=== PATIENT | male | born 1950 | race Asian ===

== ENCOUNTER 2018-09-30 11:28 | Inpatient (IN) | payer MEDICARE, MEDICAID ==
--- NOTE | 2018-09-30 11:59 | ED Physician Chart ---
ED Chief Complaint/HPI - Patient Information Date Seen:: 09/30/18 Time Seen:: 11:54 Chief Complaint:: possible new stroke History of Present Illness:: this is a 68 yo male stroke patient from home with finding consistent with a new stroke. the patient was sent here by dr Higginbotham for evaluation and treatment. the patient's. the patient is having a problem with his lower back also and his doctors thinks that he needs an mri scan for his head and back. Historian:: Patient, Family Member Review:: Nurse's Note Reviewed ED Review of Systems - Review of Systems General/Constitutional: No fever, No chills, No weight loss, Weakness, No diaphoresis, No edema, No loss of appetite Skin: No skin lesions, No rash, No bruising Head: No headache, No light-headedness Eyes: No loss of vision, No pain, No diplopia ENT: No earache, No nasal drainage, No sore throat, No tinnitus Neck: No neck pain, No swelling, No thyromegaly, No stiffness, No mass noted Cardio Vascular: No chest pain, No palpitations, No PND, No orthopnea, No edema Pulmonary: No SOB, No cough, No sputum, No wheezing GI: No nausea, No vomiting, No diarrhea, No pain, No melena, No hematochezia, No constipation, No hematemesis G/U: No dysuria, No frequency, No hematuria Musculoskeletal: No bone or joint pain, Back pain, No muscle pain Endocrine: No polyuria, No polydipsia Psychiatric: No prior psych history, Depression, No anxiety, No suicidal ideation Hematopoietic: No bruising, No lymphadenopathy Allergic/Immuno: No urticaria, No angioedema Neurological: No syncope, Focal symptoms, Weakness, No paresthesia, No headache , No seizure, No dizziness, No confusion, No vertigo ED Past Medical History - Past Medical History Obtainable: Yes Past Medical History: HTN, DM, CVA/TIA, Dyslipidemia Family History: Cancer (father had cancer, mother had a stroke) Social History: Non Smoker, No Alcohol, No Drug Use, Surgical History: other (left lung surgery, neck cyst removal) Psychiatricy History: None Medication: Reviewed ED Physical Exam - Physical Examination General/Constitutional: Awake, Well-developed, well-nourished, Alert, No distress, GCS 15, Non-toxic appearing, Ambulatory Head: Atraumatic Eyes: Lids, conjuctiva normal, PERRL, EOMI Skin: Nl inspection, No rash, No skin lesions, No ecchymosis, Well hydrated, No lymphadenopathy ENMT: External ears, nose nl, Nasal exam nl, Lips, teeth, gums nl Neck: Nontender, Full ROM w/o pain, No JVD, No nuchal rigidity, No bruit, No mass, No stridor Respiratory: Nl effort/Exclusion, Clear to Auscultation, No Wheeze/Rhonchi/Rales Cardio Vascular: RRR, No murmur, gallop, rubs, NL S1 S2 GI: No tenderness/rebounding/guarding, No organomegaly, No hernia, Normal BS's, Nondistended, No mass/bruits, No McBurney tenderness : No CVA tenderness Extremities: No tenderness or effusion, Full ROM, normal strength in all extremities, No edema, Normal digits & nails Neuro/Psych: Alert/oriented, DTR's symmetric, Normal sensory exam, Normal motor strength, Judgement/insight normal, Mood normal, Normal gait, No focal deficits (left sided weakness of the upper and lower extremity) Misc: Normal back, No paraspinal tenderness ED Labs/Radiology/EKG Results - Radiology Results Results: chest x-ray = nad - EKG Interpretations EKG Time:: 12:14 Rate & Rhythm: rate= 82, sinus [place]: right axis ED Assessment - Assessment General Assessment: weakness left side back pain ED Septic Shock - . Is Septic Shock (SBP<90, OR Lactate>4 mmol\L) present?: No ED Reassessment (Disposition) - Reassessment Reassessment Condition:: Unchanged - Diagnosis Diagnosis:: recurrent back pain recurrent stroke - Patient Disposition Discharge/Transfer:: Acute Care w/in this hosp Admitted to:: Med/Surg Admitting Psych Physician:: Angelita Higginbotham Condition at Disposition:: Improved
[2018-09-30 12:01] LABS: EOSINOPHILE ABSOLUTE 0.2 Th/cmm (0.1-0.4); HEMATOCRIT 29.7 % (41.0-60); LYMPHOCYTE ABSOLUTE 1.8 Th/cmm (1.5-3.0); MEAN CELL VOLUME 90.5 fl (80-99); MEAN CORPUSCULAR HEMOGLOBIN 30.5 pg (27.0-31.0); MEAN CORPUSCULAR HGB CONC 33.7 pg (28.0-36.0); MEAN PLATELET VOLUME 7.1 fl; MONOCYTE ABSOLUTE 0.2 Th/cmm (0.3-1.0); NEUTROPHILE ABSOLUTE 18.2 Th/cmm (1.8-8.0); PLATELET COUNT 380 Th/cmm (150-400); RED BLOOD COUNT 3.28 Mil/cmm (3.80-5.80); RED CELL DISTRIBUTION WIDTH 12.8 % (11.5-20.0)
[2018-09-30 12:23] LABS: INR 2.2 (0.5-1.4)
[2018-09-30 12:26] LABS: ALB/GLOB RATIO 1.1 (1.0-1.8); ALBUMIN 3.6 gm/dL (4.2-5.5); ALKALINE PHOSPHATASE 118 U/L (34-104); ANION GAP 13.5 (7.0-16.0); BILIRUBIN,TOTAL 1.1 mg/dL (0.3-1.0); BUN - UREA NITROGEN 13 mg/dL (7-25); CALCIUM SERUM 9.1 mg/dL (8.6-10.3); CARBON DIOXIDE 26.6 mEq/L (21.0-31.0); CHLORIDE 96 mEq/L (98-107); CHOLESTEROL 95 mg/dL (<200); CREATININE - SERUM 0.7 mg/dL (0.7-1.3); GFR AFRICAN-AMERICAN > 60.0 ml/min (>90); GFR NON AFRICAN-AMERICAN > 60.0 ml/min; GLUCOSE 106 mg/dL (70-105); HDL -HIGH DENSITY LIPOPROTEIN 27 mg/dL (23-92); POTASSIUM SERUM 4.1 mEq/L (3.5-5.1); SGOT 26 U/L (13-39); SGPT/ALT 38 U/L (7-52); SODIUM SERUM 132 mEq/L (136-145); TOTAL PROTEIN,SERUM 6.9 gm/dL (6.0-8.3); TRIGLYCERIDES 146 mg/dL (<150)
[2018-09-30 12:27] LABS: WHITE BLOOD COUNT 20.4 Th/cmm (4.8-10.8)
[2018-09-30 12:47] LABS: BAND NEUTROPHILE 0 % (0-10); EOSINOPHIL 1 % (0-5); LYMPHOCYTE 8 % (20-50); MONOCYTE 9 % (2-10); NEUTROPHILS 82 % (40-80)
[2018-09-30] MEDS ORDERED: Sodium Chloride 0.9% 1,000 ML IV ONE (12:47)
[2018-09-30 12:48] LABS: BASOPHIL 0 % (0-3); PLATELET ESTIMATE ADEQUATE (NORMAL)
--- NOTE | 2018-09-30 13:03 | Diagnostic Imaging Report ---
Portable chest x-ray HISTORY: Shortness of breath The overall heart size is normal. There is elevation of right hemidiaphragm. No acute focal pulmonary parenchymal processes. Multiple surgical clips project over the right upper chest. Pleural thickening noted within the right apical region. Atherosclerotic calcification seen in the region of the right carotid artery. IMPRESSION: 1. No acute abnormalities 2. Surgical changes 3. Atherosclerotic vascular changes
[2018-09-30 13:04] LABS: URINE SOURCE FOLEY PORT
[2018-09-30 13:08] LABS: URINE BILIRUBIN NEGATIVE (NEGATIVE); URINE BLOOD SMALL (NEGATIVE); URINE GLUCOSE (UA) NEGATIVE (NEGATIVE); URINE KETONE NEGATIVE (NEGATIVE); URINE LEUKOCYTE ESTERASE LARGE (NEGATIVE); URINE MICROSCOPIC INDICATED? YES; URINE NITRATE NEGATIVE (NEGATIVE); URINE PROTEIN NEGATIVE (NEGATIVE); URINE UROBILINOGEN 0.2 E.U./dL (0.2 - 1.0)
[2018-09-30 13:10] LABS: URINE CLARITY CLOUDY (CLEAR); URINE COLOR YELLOW
[2018-09-30 13:19] LABS: URINE BACTERIA MANY /hpf (NONE SEEN); URINE EPITHELIAL CELLS NONE SEEN /lpf (FEW)
--- NOTE | 2018-09-30 13:24 | Diagnostic Imaging Report ---
Head CT without intravenous contrast Indication: Stroke Comparison: None Technique: Axial images were obtained from the vertex to the skull base without IV contrast. Coronal reconstructions were made. Total DLP: 738, [id number] FINDINGS: Images of the brain obtained without contrast demonstrate no evidence of an acute hemorrhage. Atrophy is noted. Diffuse white matter disease is noted. The ventricles and basal cisterns are patent. No mass effect or midline shift. Chronic appearing small bilateral basal ganglia infarcts are noted. Atherosclerosis is noted. No evidence of a skull fracture or focal soft tissue swelling. The visualized paranasal sinuses demonstrate minimal mucosal thickening. IMPRESSION: No evidence of an acute intracranial hemorrhage. Diffuse supratentorial white matter disease which is nonspecific and may be due to chronic microvessel ischemia.. Small bilateral lacunar basal ganglia infarcts. Atrophy. If there is continued concern for acute stroke, MRI is recommended for further assessment Atherosclerotic vascular disease.
[2018-09-30] MEDS ORDERED: Morphine Sulfate 2 mg/mL 1mL Syr IVP PRN ×2 (15:43)
[2018-09-30] MEDS: Sodium Chloride 0.9% 1,000 ML IV SCH (16:48)
[2018-10-01 07:04] LABS: % BASOPHILS 0.2 % (0.0-2.0); % EOSINOPHILS 0.8 % (0.0-5.0); % LYMPHOCYTES 9.9 % (20.0-50.0); % MONOCYTES 6.2 % (2.0-10.0); % NEUTROPHILS 82.9 % (40.0-80.0); EOSINOPHILE ABSOLUTE 0.1 Th/cmm (0.1-0.4); HEMATOCRIT 26.2 % (41.0-60); HEMOGLOBIN 8.8 gm/dL (12-16); LYMPHOCYTE ABSOLUTE 1.4 Th/cmm (1.5-3.0); MEAN CORPUSCULAR HGB CONC 33.7 pg (28.0-36.0); MEAN PLATELET VOLUME 7.2 fl; MONOCYTE ABSOLUTE 0.8 Th/cmm (0.3-1.0); NEUTROPHILE ABSOLUTE 11.4 Th/cmm (1.8-8.0); PLATELET COUNT 374 Th/cmm (150-400); RED BLOOD COUNT 2.85 Mil/cmm (3.80-5.80); RED CELL DISTRIBUTION WIDTH 13.4 % (11.5-20.0)
[2018-10-01 07:08] LABS: WHITE BLOOD COUNT 13.7 Th/cmm (4.8-10.8)
[2018-10-01 07:33] LABS: BUN - UREA NITROGEN 10 mg/dL (7-25); CALCIUM SERUM 8.4 mg/dL (8.6-10.3); CARBON DIOXIDE 26.9 mEq/L (21.0-31.0); CHLORIDE 100 mEq/L (98-107); CREATININE - SERUM 0.8 mg/dL (0.7-1.3); GFR AFRICAN-AMERICAN > 60.0 ml/min (>90); GFR NON AFRICAN-AMERICAN > 60.0 ml/min; GLUCOSE 102 mg/dL (70-105); POTASSIUM SERUM 3.9 mEq/L (3.5-5.1); SODIUM SERUM 136 mEq/L (136-145)
[2018-10-01] MEDS: Sodium Chloride 0.9% 1,000 ML IV SCH ×2 (09:40→14:33)
--- NOTE | 2018-10-01 12:14 | History & Physical ---
ADMIT DATE: 10/01/2018 CHIEF COMPLAINT: Weakness. HISTORY OF PRESENT ILLNESS: This is a 68-year-old male who was admitted to the Emergency Room of [facility] due to increasing weakness, rule out CVA. From Emergency Room, workup was done and found that the patient does not have any active bleeding or negative CVA at that time. Hence, the patient was admitted to Med/Surg for observation. REVIEW OF SYSTEMS: GENERAL: This is a 68-year-old male that appears as stated. No fever. Positive weakness. HEAD: No headache, no dizziness. EYES: No eye pain, no blurring of vision. NECK: No neck pain. No nuchal rigidity. CHEST: No chest pain. No palpitation. PULMONARY: No coughing, no shortness of breath. GASTROINTESTINAL: No abdominal pain, positive constipation. No diarrhea. MUSCULOSKELETAL: No joint pain. No muscle pain. SOCIAL HISTORY: The patient lives with family at home. Denies nicotine. Denies alcohol. Denies illicit drug use. PSYCHIATRIC HISTORY: Unremarkable. PAST SURGICAL HISTORY: Unremarkable. PAST MEDICAL HISTORY: Includes history off CVA, diabetes, hypertension, depression, atrial fibrillation. PHYSICAL EXAMINATION: VITAL SIGNS: Temperature 99.0, heart rate of 82, blood pressure 150/78, respirations of 18, 98% on room air. GENERAL: This is a 68-year-old male that appears as stated in no acute distress. HEENT: Head is atraumatic and normocephalic. Eyes: Bilateral conjunctivae are clear. Bilateral pupils are equally round and reactive. NECK: Supple. No JVD. CARDIOVASCULAR: S1 and S2 without murmur. PULMONARY: Clear to auscultation. GASTROINTESTINAL: Soft and nontender without guarding. Positive bowel sounds. MUSCULOSKELETAL: No clubbing. No cyanosis noted. ASSESSMENT: 1. Weakness. 2. Rule out cerebrovascular accident. 3. History of cerebrovascular accident. 4. Hypertension. 5. Hyperlipidemia. 6. Atrial fibrillation. 7. Diabetes. 8. Depression. PLAN: We will admit the patient to med/surg and continue to monitor for any weakness and any signs of acute cerebrovascular accident. We will resume medication. We will do medication reconciliation. Treatment plans were discussed with the patient's nurse. Treatment plans were discussed with Dr. Higginbotham. JOB# [id number]
[2018-10-02] MEDS: Sodium Chloride 0.9% 1,000 ML IV SCH ×3 (02:05→17:33)
[2018-10-02 09:10] LABS: HEMATOCRIT 27.5 % (41.0-60); HEMOGLOBIN 9.3 gm/dL (12-16); MEAN CELL VOLUME 92.2 fl (80-99); MEAN CORPUSCULAR HEMOGLOBIN 31.2 pg (27.0-31.0); MEAN CORPUSCULAR HGB CONC 33.8 pg (28.0-36.0); MEAN PLATELET VOLUME 6.4 fl; PLATELET COUNT 508 Th/cmm (150-400); RED BLOOD COUNT 2.99 Mil/cmm (3.80-5.80); WHITE BLOOD COUNT 13.2 Th/cmm (4.8-10.8)
[2018-10-02 09:24] LABS: ANION GAP 8.9 (7.0-16.0); BUN - UREA NITROGEN 9 mg/dL (7-25); CALCIUM SERUM 8.8 mg/dL (8.6-10.3); CARBON DIOXIDE 27.3 mEq/L (21.0-31.0); CHLORIDE 104 mEq/L (98-107); CREATININE - SERUM 0.8 mg/dL (0.7-1.3); GFR AFRICAN-AMERICAN > 60.0 ml/min (>90); GFR NON AFRICAN-AMERICAN > 60.0 ml/min; GLUCOSE 120 mg/dL (70-105); POTASSIUM SERUM 4.2 mEq/L (3.5-5.1); SODIUM SERUM 136 mEq/L (136-145)
[2018-10-02 10:03] LABS: BAND NEUTROPHILE 0 % (0-10); EOSINOPHIL 1 % (0-5); LYMPHOCYTE 8 % (20-50); MONOCYTE 5 % (2-10); NEUTROPHILS 86 % (40-80)
[2018-10-02 10:04] LABS: BASOPHIL 0 % (0-3)
[2018-10-02 10:05] LABS: BAND NEUTROPHILE 0 % (0-10); BASOPHIL 0 % (0-3); EOSINOPHIL 1 % (0-5); LYMPHOCYTE 8 % (20-50); MONOCYTE 5 % (2-10); NEUTROPHILS 86 % (40-80)
--- NOTE | 2018-10-02 12:21 | Internal Medicine Prog Note ---
Internal Medicine Subjective - Subjective Patient seen and examined:: chart reviewed Patient is:: awake, other (pt admitted with increased weakness ) Internal Medicine Objective - Results Result Diagrams: 10/02/18 09:00 10/02/18 09:00 Recent Labs: Laboratory Last Values WBC 13.2 Th/cmm (4.8-10.8) H 10/02/18 09:00 RBC 2.99 Mil/cmm (3.80-5.80) L 10/02/18 09:00 Hgb 9.3 gm/dL (12-16) L 10/02/18 09:00 Hct 27.5 % (41.0-60) L 10/02/18 09:00 MCV 92.2 fl (80-99) 10/02/18 09:00 MCH 31.2 pg (27.0-31.0) H 10/02/18 09:00 MCHC Differential 33.8 pg (28.0-36.0) 10/02/18 09:00 RDW 13.0 % (11.5-20.0) 10/02/18 09:00 Plt Count 508 Th/cmm (150-400) H 10/02/18 09:00 MPV 6.4 fl 10/02/18 09:00 Add Manual Diff YES 10/02/18 09:00 Neutrophils % PATENT SOLICITOR 10/02/18 09:00 Band Neutrophils % 0 % (0-10) 10/02/18 09:00 Lymphocytes % PATENT SOLICITOR 10/02/18 09:00 Monocytes % PATENT SOLICITOR 10/02/18 09:00 Eosinophils % PATENT SOLICITOR 10/02/18 09:00 Basophils % PATENT SOLICITOR 10/02/18 09:00 Neutrophils (Manual) 86 % (40-80) H 10/02/18 09:00 Lymphocytes 8 % (20-50) L 10/02/18 09:00 Monocytes 5 % (2-10) 10/02/18 09:00 Eosinophils 1 % (0-5) 10/02/18 09:00 Basophils 0 % (0-3) 10/02/18 09:00 Platelet Estimate ADEQUATE (NORMAL) 09/30/18 11:56 PT 22.0 SECONDS (9.5-11.5) H 09/30/18 11:56 INR 2.20 (0.5-1.4) H 09/30/18 11:56 PTT (Actin FS) 36.4 SECONDS (26.0-38.0) 09/30/18 11:56 Sodium 136 mEq/L (136-145) 10/02/18 09:00 Potassium 4.2 mEq/L (3.5-5.1) 10/02/18 09:00 Chloride 104 mEq/L (98-107) 10/02/18 09:00 Carbon Dioxide 27.3 mEq/L (21.0-31.0) 10/02/18 09:00 Anion Gap 8.9 (7.0-16.0) 10/02/18 09:00 BUN 9 mg/dL (7-25) 10/02/18 09:00 Creatinine 0.8 mg/dL (0.7-1.3) 10/02/18 09:00 Est GFR ( Amer) > 60.0 ml/min (>90) 10/02/18 09:00 Est GFR (Non-Af Amer) > 60.0 ml/min 10/02/18 09:00 BUN/Creatinine Ratio 11.3 10/02/18 09:00 Glucose 120 mg/dL (70-105) H 10/02/18 09:00 Whole Bld Lactic Acid 1.77 mmol/L (0.60-1.99) 09/30/18 11:56 Calcium 8.8 mg/dL (8.6-10.3) 10/02/18 09:00 Total Bilirubin 1.1 mg/dL (0.3-1.0) H 09/30/18 11:56 AST 26 U/L (13-39) 09/30/18 11:56 ALT 38 U/L (7-52) 09/30/18 11:56 Alkaline Phosphatase 118 U/L (34-104) H 09/30/18 11:56 Troponin I 0.01 ng/mL (0.01-0.05) 09/30/18 11:56 Total Protein 6.9 gm/dL (6.0-8.3) 09/30/18 11:56 Albumin 3.6 gm/dL (4.2-5.5) L 09/30/18 11:56 Globulin 3.3 gm/dL 09/30/18 11:56 Albumin/Globulin Ratio 1.1 (1.0-1.8) 09/30/18 11:56 Triglycerides 146 mg/dL (<150) 09/30/18 11:56 Cholesterol 95 mg/dL (<200) 09/30/18 11:56 LDL Cholesterol Direct 59 mg/dL (75-193) L 09/30/18 11:56 HDL Cholesterol 27 mg/dL (23-92) 09/30/18 11:56 TSH 1.19 uIU/ml (0.34-5.60) 09/30/18 11:56 Urine Source [place] 09/30/18 11:56 Urine Color YELLOW 09/30/18 11:56 Urine Clarity CLOUDY (CLEAR) 09/30/18 11:56 Urine pH 7.0 (4.6 - 8.0) 09/30/18 11:56 Ur Specific [place] <= 1.005 (1.005-1.030) 09/30/18 11:56 Urine Protein NEGATIVE mg/dL (NEGATIVE) 09/30/18 11:56 Urine Glucose (UA) NEGATIVE mg/dL (NEGATIVE) 09/30/18 11:56 Urine Ketones NEGATIVE mg/dL (NEGATIVE) 09/30/18 11:56 Urine Blood SMALL (NEGATIVE) H 09/30/18 11:56 Urine Nitrate NEGATIVE (NEGATIVE) 09/30/18 11:56 Urine Bilirubin NEGATIVE (NEGATIVE) 09/30/18 11:56 Urine Urobilinogen 0.2 E.U./dL (0.2 - 1.0) 09/30/18 11:56 Ur Leukocyte Esterase LARGE (NEGATIVE) H 09/30/18 11:56 Urine RBC 2-5 /hpf (0-5) H 09/30/18 11:56 Urine WBC 10-25 /hpf (0-5) H 09/30/18 11:56 Ur Epithelial Cells NONE SEEN /lpf (FEW) 09/30/18 11:56 Calcium Oxalate Crystal FEW /hpf 09/30/18 11:56 Urine Bacteria MANY /hpf (NONE SEEN) H 09/30/18 11:56 - Physical Exam Vitals and I&O: Vital Signs Temp 97.9 F 10/02/18 11:28 Pulse 72 10/02/18 11:28 Resp 18 10/02/18 11:28 BP 111/51 10/02/18 11:28 Pulse Ox 99 10/02/18 11:28 Intake & Output 10/01/18 10/02/18 10/02/18 18:59 06:59 18:59 Intake Total 950 1550 Output Total 600 2100 Balance 350 -550 Weight (lbs) 69.853 kg 69.853 kg Intake: Intake, IV Amount 50 1050 Piperacillin Sodium/ 50 50 Tazobact 3.375 gm In Sodium Chloride 0.9% 50 ml @ 100 mls/hr IV Q8HR [facility] Rx#:[id number] Sodium Chloride 0.9% 1, 1000 000 ml @ 100 mls/hr IV . Q10H [facility] Rx#:[id number] Oral 900 500 Output: Urine 600 2100 Other: # Voids 4 # Bowel Movements 1 2 Stool Characteristics Soft Weight Source Bedscale Bedscale Active Medications: Current Medications Citalopram Hydrobromide (Celexa) 10 mg PO DAILY [facility] Stop: 11/30/18 08:59 Last Admin: 10/02/18 09:11 Dose: 10 mg Docusate Sodium (Colace) 100 mg PO DAILY [facility] Stop: 11/30/18 08:59 Last Admin: 10/02/18 09:13 Dose: Not Given Docusate Sodium (Colace) 100 mg PO HS PRN PRN Reason: Constipation Stop: 12/01/18 20:59 Last Admin: 10/01/18 23:19 Dose: 100 mg Felodipine (Plendil) 5 mg PO DAILY [facility] Stop: 11/30/18 08:59 Last Admin: 10/02/18 09:11 Dose: 5 mg Sodium Chloride (Nacl 0.9%) 1,000 mls @ 100 mls/hr IV .Q10H [facility] Stop: 11/29/18 15:42 Last Admin: 10/02/18 02:05 Dose: 100 mls/hr Piperacillin Sod/Tazobactam (Sod 3.375 gm/ Sodium Chloride) 50 mls @ 100 mls/ hr IV Q8HR [facility] Stop: 11/29/18 16:29 Last Admin: 10/02/18 05:02 Dose: 100 mls/hr Lisinopril (Zestril) 2.5 mg PO DAILY [facility] Stop: 11/30/18 08:59 Last Admin: 10/02/18 09:13 Dose: 2.5 mg Metformin HCl (Glucophage) 500 mg PO DAILY@0800 [facility] Stop: 11/30/18 07:59 Last Admin: 10/02/18 09:15 Dose: 500 mg Morphine Sulfate (Morphine) 2 mg IVP Q4H PRN PRN Reason: Pain (Severe) Stop: 11/29/18 15:42 Morphine Sulfate (Morphine) 1 mg IVP Q4HR PRN PRN Reason: Pain (Moderate) Stop: 11/29/18 15:42 Ondansetron HCl (Zofran) 4 mg IV Q6H PRN PRN Reason: Nausea / Vomiting Stop: 11/29/18 15:42 Simvastatin (Zocor) 20 mg PO DAILY [facility]; Protocol Stop: 11/30/18 08:59 Last Admin: 10/02/18 09:11 Dose: 20 mg Warfarin Sodium (Coumadin) 5 mg PO C [facility]; Protocol Stop: 11/30/18 12:59 Last Admin: 10/01/18 13:33 Dose: 5 mg General: weak, alert HEENT: NC/AT Neck: Supple Lungs: CTAB Cardiovascular: RRR, Normal S1, Normal S2 Abdomen: soft Extremities: clear Neurological: no change Internal Medicine Assmt/Plan - Assessment Assessment: weakness r/o cva h/o cva htn hyperlipidemia a fib dm depression
--- NOTE | 2018-10-03 05:34 | Consultation ---
DATE OF CONSULTATION: 10/02/2018 INFECTIOUS DISEASE CONSULTATION REFERRING PHYSICIAN: Dr. Higginbotham. REASON FOR CONSULTATION: UTI. HISTORY OF PRESENT ILLNESS: The patient is a 68-year-old male with past medical history of CVA, diabetes mellitus type 2, hypertension, depression, and atrial fibrillation, brought from home for weakness and rule out CVA. On initial evaluation, the patient's temperature was 97.4 degrees Fahrenheit and WBC 20,400. Sepsis workup was performed and found to have UTI and urine culture grew Klebsiella pneumoniae. The patient was already started on Zosyn. PAST MEDICAL HISTORY: Includes CVA, diabetes mellitus type 2, hypertension, depression, atrial fibrillation. SOCIAL HISTORY: The patient lives at home with family. Denies any smoking, alcohol or drug use. PSYCHIATRIC HISTORY: None. PAST SURGICAL HISTORY: None. MEDICATIONS: As per medication reconciliation sheet. Antibiotic-dudley, the patient is on Zosyn. ALLERGIES: ASPIRIN. REVIEW OF SYSTEMS: GENERAL: The patient has no fever or chills, but has generalized weakness. HEENT: No diplopia, no photophobia, no sore throat. RESPIRATORY: No cough, no shortness of breath. CARDIOVASCULAR: No chest pain or palpitation. GASTROINTESTINAL: No nausea, no vomiting, no diarrhea, no constipation. GENITOURINARY: No dysuria. NEUROLOGIC: No headache, no dizziness, no focal weakness. PHYSICAL EXAMINATION: CURRENT VITAL SIGNS: Show temperature is 98.7 degrees Fahrenheit, pulse 83, respirations 19, blood pressure 145/73. GENERAL: The patient is comfortable, lying in the bed, not in any acute distress. HEENT: Head is normocephalic, atraumatic. Oral cavity is moist. [place] tongue. NECK: Supple. No JVD, no carotid bruit. Trachea in midline. CHEST: Bilateral breath sounds. No crackles or wheezing. HEART: S1 and S2 within normal limits. Regular rhythm. No murmur or gallop. ABDOMEN: Soft, nontender, nondistended. Bowel sounds present. BACK: The patient has no CVA tenderness. No spinal tenderness. EXTREMITIES: No cyanosis, no clubbing, no edema. NEUROLOGICAL: Alert, awake, oriented x 3. The patient has left-sided weakness. LABORATORY DATA: Current lab shows WBC 13,200, hemoglobin 9.3, hematocrit 27.5, platelets are 508,000, neutrophils 86%. INR 2.2. Sodium 136, potassium 4.2, chloride 104, bicarbonate is 27, BUN is 9, creatinine 0.8, glucose 120. Urinalysis showed large leukocyte esterase, WBC's 10-25, many bacteria. Blood culture 2 sets are negative. Urine culture grew Klebsiella pneumoniae IMPRESSION: 1. Leukocytosis. 2. Urinary tract infection, pyelonephritis. 3. Cerebrovascular accident. 4. Diabetes mellitus type 2. 5. Hypertension. RECOMMENDATIONS: Continue Zosyn at this time. When the patient is stable, we will change the antibiotic to Bactrim for 5 more days. Thank you, Dr. Higginbotham, for involving me in taking care of this patient. JOB# [id number]
[2018-10-03] MEDS: Sodium Chloride 0.9% 1,000 ML IV SCH ×2 (10:19→13:01)
--- NOTE | 2018-10-03 11:23 | Diagnostic Imaging Report ---
Renal ultrasound HISTORY: Pain The right kidney measures 10.2 x 4.7 x 4.7 cm. No focal lesions. No hydronephrosis. The left kidney measures 10.3 x 5.7 x 4.9 cm. There is an approximate 2.1 x 1.4 x 1.5 cm echogenic density in the upper pole. This is indeterminate. A CT scan is recommended for further assessment and evaluation. No hydronephrosis. No intraluminal abnormality seen within the urinary bladder. The prostate gland appears somewhat enlarged with encroachment on the floor of the urinary bladder. Punctate echogenic foci consistent with calcifications noted. Postvoid evaluation could not be performed. IMPRESSION: 1. Indeterminate hyperechoic mass in the upper pole the left kidney. A CT scan is recommended for further assessment and evaluation. 2. Mild to moderate enlargement of the prostate gland IMPRESSION:
--- NOTE | 2018-10-03 14:33 | Infectious Disease Prog Note ---
Infectious Disease Subjective - Review of Systems Service Date: 10/03/18 Subjective: No fever, no new change, Infectious Disease Objective - Results Result Diagrams: 10/02/18 09:00 10/02/18 09:00 Recent Labs: Laboratory Last Values WBC 13.2 Th/cmm (4.8-10.8) H 10/02/18 09:00 RBC 2.99 Mil/cmm (3.80-5.80) L 10/02/18 09:00 Hgb 9.3 gm/dL (12-16) L 10/02/18 09:00 Hct 27.5 % (41.0-60) L 10/02/18 09:00 MCV 92.2 fl (80-99) 10/02/18 09:00 MCH 31.2 pg (27.0-31.0) H 10/02/18 09:00 MCHC Differential 33.8 pg (28.0-36.0) 10/02/18 09:00 RDW 13.0 % (11.5-20.0) 10/02/18 09:00 Plt Count 508 Th/cmm (150-400) H 10/02/18 09:00 MPV 6.4 fl 10/02/18 09:00 Add Manual Diff YES 10/02/18 09:00 Neutrophils % [employer] 10/02/18 09:00 Band Neutrophils % 0 % (0-10) 10/02/18 09:00 Lymphocytes % [employer] 10/02/18 09:00 Monocytes % [employer] 10/02/18 09:00 Eosinophils % [employer] 10/02/18 09:00 Basophils % [employer] 10/02/18 09:00 Neutrophils (Manual) 86 % (40-80) H 10/02/18 09:00 Lymphocytes 8 % (20-50) L 10/02/18 09:00 Monocytes 5 % (2-10) 10/02/18 09:00 Eosinophils 1 % (0-5) 10/02/18 09:00 Basophils 0 % (0-3) 10/02/18 09:00 Platelet Estimate ADEQUATE (NORMAL) 09/30/18 11:56 PT 22.0 SECONDS (9.5-11.5) H 09/30/18 11:56 INR 2.20 (0.5-1.4) H 09/30/18 11:56 PTT (Actin FS) 36.4 SECONDS (26.0-38.0) 09/30/18 11:56 Sodium 136 mEq/L (136-145) 10/02/18 09:00 Potassium 4.2 mEq/L (3.5-5.1) 10/02/18 09:00 Chloride 104 mEq/L (98-107) 10/02/18 09:00 Carbon Dioxide 27.3 mEq/L (21.0-31.0) 10/02/18 09:00 Anion Gap 8.9 (7.0-16.0) 10/02/18 09:00 BUN 9 mg/dL (7-25) 10/02/18 09:00 Creatinine 0.8 mg/dL (0.7-1.3) 10/02/18 09:00 Est GFR ( Amer) > 60.0 ml/min (>90) 10/02/18 09:00 Est GFR (Non-Af Amer) > 60.0 ml/min 10/02/18 09:00 BUN/Creatinine Ratio 11.3 10/02/18 09:00 Glucose 120 mg/dL (70-105) H 10/02/18 09:00 Whole Bld Lactic Acid 1.77 mmol/L (0.60-1.99) 09/30/18 11:56 Calcium 8.8 mg/dL (8.6-10.3) 10/02/18 09:00 Total Bilirubin 1.1 mg/dL (0.3-1.0) H 09/30/18 11:56 AST 26 U/L (13-39) 09/30/18 11:56 ALT 38 U/L (7-52) 09/30/18 11:56 Alkaline Phosphatase 118 U/L (34-104) H 09/30/18 11:56 Troponin I 0.01 ng/mL (0.01-0.05) 09/30/18 11:56 Total Protein 6.9 gm/dL (6.0-8.3) 09/30/18 11:56 Albumin 3.6 gm/dL (4.2-5.5) L 09/30/18 11:56 Globulin 3.3 gm/dL 09/30/18 11:56 Albumin/Globulin Ratio 1.1 (1.0-1.8) 09/30/18 11:56 Triglycerides 146 mg/dL (<150) 09/30/18 11:56 Cholesterol 95 mg/dL (<200) 09/30/18 11:56 LDL Cholesterol Direct 59 mg/dL (75-193) L 09/30/18 11:56 HDL Cholesterol 27 mg/dL (23-92) 09/30/18 11:56 TSH 1.19 uIU/ml (0.34-5.60) 09/30/18 11:56 Urine Source [place] 09/30/18 11:56 Urine Color YELLOW 09/30/18 11:56 Urine Clarity CLOUDY (CLEAR) 09/30/18 11:56 Urine pH 7.0 (4.6 - 8.0) 09/30/18 11:56 Ur Specific [place] <= 1.005 (1.005-1.030) 09/30/18 11:56 Urine Protein NEGATIVE mg/dL (NEGATIVE) 09/30/18 11:56 Urine Glucose (UA) NEGATIVE mg/dL (NEGATIVE) 09/30/18 11:56 Urine Ketones NEGATIVE mg/dL (NEGATIVE) 09/30/18 11:56 Urine Blood SMALL (NEGATIVE) H 09/30/18 11:56 Urine Nitrate NEGATIVE (NEGATIVE) 09/30/18 11:56 Urine Bilirubin NEGATIVE (NEGATIVE) 09/30/18 11:56 Urine Urobilinogen 0.2 E.U./dL (0.2 - 1.0) 09/30/18 11:56 Ur Leukocyte Esterase LARGE (NEGATIVE) H 09/30/18 11:56 Urine RBC 2-5 /hpf (0-5) H 09/30/18 11:56 Urine WBC 10-25 /hpf (0-5) H 09/30/18 11:56 Ur Epithelial Cells NONE SEEN /lpf (FEW) 09/30/18 11:56 Calcium Oxalate Crystal FEW /hpf 09/30/18 11:56 Urine Bacteria MANY /hpf (NONE SEEN) H 09/30/18 11:56 - Physical Exam Vitals and I&O: Vital Signs Temp 98.6 F 10/03/18 11:29 Pulse 81 10/03/18 11:29 Resp 18 10/03/18 11:29 BP 129/73 10/03/18 11:29 Pulse Ox 96 10/03/18 11:29 Intake & Output 10/02/18 10/03/18 10/03/18 18:59 06:59 18:59 Intake Total 2050 1100 Output Total 3000 850 Balance -950 250 Weight (lbs) 68.946 kg 65 kg Intake: Intake, IV Amount 1050 1100 Piperacillin Sodium/ 50 100 Tazobact 3.375 gm In Sodium Chloride 0.9% 50 ml @ 100 mls/hr IV Q8HR [facility] Rx#:[id number] Sodium Chloride 0.9% 1, 1000 1000 000 ml @ 100 mls/hr IV . Q10H [facility] Rx#:[id number] Oral 1000 Output: Urine 3000 850 Other: # Bowel Movements 10 Stool Characteristics Soft Soft Soft Weight Source Bedscale Bedscale Active Medications: Current Medications Citalopram Hydrobromide (Celexa) 10 mg PO DAILY [facility] Stop: 11/30/18 08:59 Last Admin: 10/03/18 09:36 Dose: 10 mg Docusate Sodium (Colace) 100 mg PO DAILY [facility] Stop: 11/30/18 08:59 Last Admin: 10/03/18 09:37 Dose: 100 mg Docusate Sodium (Colace) 100 mg PO HS PRN PRN Reason: Constipation Stop: 12/01/18 20:59 Last Admin: 10/01/18 23:19 Dose: 100 mg Felodipine (Plendil) 5 mg PO DAILY [facility] Stop: 11/30/18 08:59 Last Admin: 10/03/18 09:36 Dose: 5 mg Sodium Chloride (Nacl 0.9%) 1,000 mls @ 100 mls/hr IV .Q10H [facility] Stop: 11/29/18 15:42 Last Admin: 10/03/18 13:01 Dose: Not Given Piperacillin Sod/Tazobactam (Sod 3.375 gm/ Sodium Chloride) 50 mls @ 100 mls/ hr IV Q8HR [facility] Stop: 11/29/18 16:29 Last Admin: 10/03/18 12:53 Dose: 100 mls/hr Lisinopril (Zestril) 2.5 mg PO DAILY [facility] Stop: 11/30/18 08:59 Last Admin: 10/03/18 09:37 Dose: 2.5 mg Metformin HCl (Glucophage) 500 mg PO DAILY@0800 [facility] Stop: 11/30/18 07:59 Last Admin: 10/03/18 08:37 Dose: 500 mg Morphine Sulfate (Morphine) 2 mg IVP Q4H PRN PRN Reason: Pain (Severe) Stop: 11/29/18 15:42 Morphine Sulfate (Morphine) 1 mg IVP Q4HR PRN PRN Reason: Pain (Moderate) Stop: 11/29/18 15:42 Ondansetron HCl (Zofran) 4 mg IV Q6H PRN PRN Reason: Nausea / Vomiting Stop: 11/29/18 15:42 Simvastatin (Zocor) 20 mg PO DAILY [facility]; Protocol Stop: 11/30/18 08:59 Last Admin: 10/03/18 09:38 Dose: 20 mg Warfarin Sodium (Coumadin) 5 mg PO C [facility]; Protocol Stop: 11/30/18 12:59 Last Admin: 10/03/18 12:59 Dose: 5 mg General: no acute distress, well developed, well nourished HEENT: atraumatic, normocephalic, PERRLA, EOMI Neck: supple, no thyromegaly Cardiovascular: S1S2, regular Lungs: clear to auscultation bilaterally, clear to percussion Abdomen: soft, no tender, no distended Extremities: no cyanosis, no clubbing, no edema Neurological: awake, alert, oriented Skin: intact Infectious Disease Assmt/Plan - Problem List Patient Problems: All Active Problems WEAKNESS AND POOR ORAL INTAKE (Acute) - Assessment Assessment: 1. Leukocytosis. 2. Urinary tract infection, pyelonephritis. 3. Cerebrovascular accident. 4. Diabetes mellitus type 2. 5. Hypertension. - Plan Plan: Change antibiotics to bactrim ds 1 tab po bid for 5 more days.
--- NOTE | 2018-10-03 14:38 | Consultation ---
DATE OF CONSULTATION: HISTORY OF PRESENT ILLNESS: This is a ____ with past medical history of CVA, hypertension, diabetes mellitus type 2, and dyslipidemia, admitted to the hospital for generalized weakness. The patient was thought to have CVA. On initial evaluation, the patient's temperature was 97.4 degrees Fahrenheit and WBC count was 20,400. Urinalysis showed pyuria and bacteriuria. Chest x-ray showed no acute changes. The patient was started on Zosyn. The patient did well. The patient's leukocytosis is improving. CT scan of the head was negative for any acute event. PAST MEDICAL HISTORY: Includes hypertension, diabetes mellitus type 2, CVA, and dyslipidemia. ALLERGIES: ASPIRIN. SOCIAL HISTORY: The patient lives at home. Denies any smoking, alcohol, or drug use. . FAMILY HISTORY: Father has cancer. Mother has a stroke. REVIEW OF SYSTEMS: GENERAL: The patient has no fever, no chills. The patient is alert today. HEENT: No diplopia, no photophobia, no sore throat. RESPIRATORY: No cough, no shortness of breath. CARDIOVASCULAR: No chest pain, no palpitation. GASTROINTESTINAL: No nausea, no vomiting, no diarrhea, no constipation. GENITOURINARY: No dysuria. NEUROLOGIC: No headache, no dizziness, no seizures. PHYSICAL EXAMINATION: VITAL SIGNS: Current vital signs show temperature is 98.7, pulse is 83, respirations 19, and blood pressure is 145/73. GENERAL: The patient is comfortable, lying in the bed, not in acute distress. HEENT: Head is normocephalic, atraumatic. Oral cavity is most, pink tongue. NECK: Supple, no JVD, no carotid bruit. Trachea in midline. CHEST: Bilateral breath sounds. No crackles or wheezing. HEART: S1, S2 within normal limits. Regular rhythm. No murmur, no gallop. ABDOMEN: Soft, nontender, nondistended. Bowel sounds present. EXTREMITIES: No cyanosis, no clubbing, no edema. NEUROLOGICAL: The patient is alert, awake, and oriented. DTRs symmetrical. Normal sensory exam. Left-sided weakness. SKIN: Intact. BACK: No spinal tenderness, no CVA tenderness. LABORATORY DATA: Current lab shows WBC count is 13,200, hemoglobin is 9.3, hematocrit is 27.5, platelets are 508,000, and neutrophils 86%. INR is 2.2. Sodium is 136, potassium is 4.2, chloride is 104, bicarbonate is 27, BUN is 9, creatinine is 0.8, and glucose is 120. Urinalysis show yellow cloudy urine with large leukoesterase, wbc's 10-25, many bacteria. IMPRESSION: 1. Leukocytosis. 2. Urinary tract infection. Urine culture growing Klebsiella pneumoniae. 3. Klebsiella infection. 4. History of cerebrovascular accident. 5. History of hypertension. 6. History of diabetes mellitus type 2. RECOMMENDATIONS: We will continue Zosyn. If stable, change the antibiotic to Bactrim DS 1 tablet p.o. twice a day for 5 days from now. JOB# [id number]
[2018-10-03] MEDS ORDERED: Sulfamethoxazole/TMP 800/160mg Tab PO SCH (17:00)
== END 2018-10-03 15:31 | DRG 690 ==
LOC: ER 11:28 → MSI 13:30
PROVIDERS: ADMIT Internal Medicine; ATTEND Internal Medicine
DX: N12 Tubulo-interstitial nephritis, not specified as acute or chronic (principal); I10 Essential (primary) hypertension; E78.5 Hyperlipidemia, unspecified; B96.1 Klebsiella pneumoniae [K. pneumoniae] as the cause of diseases classified elsewhere; I48.91 Unspecified atrial fibrillation; E11.9 Type 2 diabetes mellitus without complications; F32.9 Major depressive disorder, single episode, unspecified; D72.829 Elevated white blood cell count, unspecified; Z86.73 Personal history of transient ischemic attack (TIA), and cerebral infarction without residual deficits; Z88.0 Allergy status to penicillin
CPT/HCPCS: 36415-UA; 70450-TC; 71045-TC; 76770-TC; 80048-TC; 80053-TC; 80061-TC; 81001-TC; 83605; 84443-TC; 84484-TC; 85007-TC; 85025-TC; 85610-TC; 85730-TC; 87086-90; 93005; 96374; J0696; J2543; J7030; X3904; Z7610